=== PATIENT | male | born 1990 | race Caucasian/White ===

== ENCOUNTER 2024-11-22 11:53 | Emergency (ER) | payer SELFPAY ==
[2024-11-22 11:57] VITALS: BP 157/93; PULSE 73; TEMP 36.7; O2SAT 98; BMI 33.9
--- NOTE | 2024-11-22 12:03 | XR_ITS ---
[address] [address] Patient Name: BRADY RAZA MRN: [id number] date: 1990 Sex: M Assigned Patient Location: ER Current Patient Location: ER Accession/Order Number: [id number] Exam Date: 11/22/2024 12:15 Report Date: 11/22/2024 13:12 At the request of: CARMELLA OLEARY Procedure: XR chest 2V EXAM: XR chest 2V HISTORY: cough COMPARISON: None FINDINGS/IMPRESSION: 1. Lungs are clear 2. No pneumothorax. No pleural effusion. 3. Heart size and mediastinal contours are normal 4. No acute osseous abnormality. 5. Upper abdominal bowel gas pattern is nonspecific. Electronically authenticated by: ALEJANDRO MARTINEZ Date: 11/22/2024 13:12
--- NOTE | 2024-11-22 12:04 | ED_ITS ---
HPI - URI/Sore Throat General Chief Complaint: Upper Respiratory Infection Stated Complaint: SHORT OF BREATH, NAUSEA Time Seen by Provider: 11/22/24 11:55 Source: patient History of Present Illness HPI Narrative: Patient presents ED complaining of not feeling well. He reports shortness of breath and cough and wheezing. He has a history of asthma and states he has been using his inhaler much more than he normally does. He reports having pneumonia about a month ago and was placed on antibiotics at that time. Patient states he did start to get better and then over the past couple of days he got worse again. No fever here. 98% on room air. He said he is not coughing anything up but he does have a cough. He is also mildly nauseated no vomiting no abdominal pain. Patient reports fatigue and generalized bodyaches. No other at this Related Data Previous Rx's ?Medication ?Instructions ?Recorded albuterol sulfate 90 mcg/actuation 1 inh inhalation Q6H PRN shortness 11/22/24 aerosol inhaler of breath or wheezing #8.5 grams ipratropium 0.5 mg-albuterol 3 mg 3 ml inhalation Q6H PRN shortness 11/22/24 (2.5 mg base)/3 mL nebulization of breath or wheezing #90 mL soln methylprednisolone 4 mg tablets in 4 mg PO DAILY #21 ea 11/22/24 a dose pack (Medrol (Maxime)) Allergies Allergy/AdvReac Type Severity Reaction Status Date / Time No Known Drug Allergies Allergy Verified 11/22/24 12:01 Review of Systems ROS Status of ROS 10 or more systems reviewed and unremark able except as noted in history and below Exam Narrative Exam Narrative: Time Seen: [] Vital Signs: [Per nurse's notes.] General: [Alert] Skin: [Warm, dry, no rash.] Head: [Normocephalic, atraumatic.] Neck: [Supple, trachea midline.] Eye: [Pupils are equal, round and reactive to light, extraocular movements are intact, normal conjunctiva.] Ears, nose, mouth and throat: oral mucosa moist. Cardiovascular: [Regular rate and rhythm, no murmur.] Respiratory: [Very minimal wheezing left lower lobe, respirations are non- labored, breath sounds are equal.] Chest wall: [No tenderness, no deformity.] Gastrointestinal: [Soft, nontender, non distended, normal bowel sounds.] MSK: 5 out of 5 muscle strength x 4 extremities no calf pain or edema Psychiatric: [Cooperative, appropriate mood & affect.] Neurological: [Alert and oriented to person, place, time, and situation, no focal neurological deficit observed.] Constitutional Vital Signs, click to edit/add: Last Vital Signs Temp 98.0 F 11/22/24 11:57 Pulse 89 11/22/24 12:22 Resp 16 11/22/24 12:22 BP 157/93 H 11/22/24 11:57 Pulse Ox 97 11/22/24 12:22 O2 Del Method Room Air 11/22/24 12:22 Course Vital Signs Vital signs: Vital Signs Temperature 98.0 F 11/22/24 11:57 Pulse Rate 73 11/22/24 11:57 Respiratory Rate 18 11/22/24 11:57 Blood Pressure 157/93 H 11/22/24 11:57 Pulse Oximetry 98 11/22/24 11:57 Oxygen Delivery Method Room Air 11/22/24 11:57 Temperature 98.0 F 11/22/24 11:57 Pulse Rate 89 11/22/24 12:22 Respiratory Rate 16 11/22/24 12:22 Blood Pressure 157/93 H 11/22/24 11:57 Pulse Oximetry 97 11/22/24 12:22 Oxygen Delivery Method Room Air 11/22/24 12:22 MDM - URI/Sore Throat MDM Narrative Medical decision making narrative: Patient's labs are negative for flu and COVID. Patient's chest x-ray is clear. Most likely a viral syndrome with acute bronchitis due to his history of asthma. Patient was started on steroids here. He is feeling better after his breathing treatment and steroids. He does not have a nebulizer machine at home so a prescription was provided for him. He is almost out of his inhaler so I also wrote a prescription for his rescue inhaler. Steroid taper at home. Return to ED if worsening symptoms or shortness of breath. Currently his vital signs are stable no respiratory distress oxygen saturation 97% on room air. Patient states he is feeling better. Patient comfortable care plan for home and will return if worsening symptoms Differential Diagnosis Differential diagnosis: Likely upper respiratory infection, viral infection, bronchitis and influenza Lab Data Attestation: I reviewed the patient's lab results. Labs: Lab Results 11/22/24 Range/Units 12:03 Influenza Type A Ag Negative Influenza Type B Ag Negative SARS-CoV-2 Ag (CV2AG) Negative (NEGATIVE) Discharge Plan Discharge Chief Complaint: Upper Respiratory Infection Clinical Impression: Bronchitis Patient Disposition: Home, Self-Care Time of Disposition Decision: 13:14 Condition: Good Mode of Transportation: Private Vehicle Prescriptions / Home Meds: New albuterol sulfate 90 mcg/actuation HFA aerosol inhaler 1 inh inhalation Q6H PRN (Reason: shortness of breath or wheezing) Qty: 8.5 0RF methylprednisolone [Medrol (Maxime)] 4 mg tablets,dose pack 4 mg PO DAILY Qty: 21 0RF Rx Instructions: medrol dosepak taper as directed please! ipratropium-albuterol 0.5 mg-3 mg(2.5 mg base)/3 mL solution for nebulization 3 ml inhalation Q6H PRN (Reason: shortness of breath or wheezing) Qty: 90 0RF Print Language: [place] Instructions: Acute Bronchitis (ED) Referrals: Gaby Beckman RN [Primary Care Provider] - 1 week
[2024-11-22 12:22] VITALS: PULSE 89; O2SAT 97
[2024-11-22] MEDS: IPRATROPIUM/ALBUTEROL SULFATE 3 ML AMPUL.NEB IH (12:22)
[2024-11-22 12:28] LABS: Influenza Virus A Antigen Negative; Influenza Virus B Antigen Negative; Internal Control Within Normal Limits; SARS-CoV-2 Ag NEGATIVE (NEGATIVE)
[2024-11-22] MEDS: DEXAMETHASONE SOD PHOS 10 MG/ML VIAL PO (12:51)
[2024-11-22 13:20] VITALS: BP 154/89; PULSE 75; O2SAT 98
== END 2024-11-22 13:21 | disposition home or self-care (01) ==
PROVIDERS: Emergency Provider Emergency Medicine
DX: J45.909 Unspecified asthma, uncomplicated (principal); Z87.01 Personal history of pneumonia (recurrent)
CPT/HCPCS: 71046; 87804; 87811; 94640; 99284; J1100